=== PATIENT | male | born 1955 ===

== ENCOUNTER 2021-10-04 07:56 | Day surgery (SDC) | payer BC ==
[~2021-10-04 07:56] MED LIST: Lactated Ringers 1,000 ML IV SCH; Lidocaine 1%/Sod Bicarbonate in NS 8.4% 1 ML Syringe IDERM PRN; Sodium Chloride 0.9% 10 ML Syringe FLUSH PRN; Sodium Chloride 0.9% 10 ML Syringe FLUSH SCH
[2021-10-04] MEDS ORDERED: Lidocaine 1% 4 ML ONE (08:08)
[2021-10-04] MEDS ORDERED: Propofol 200 MG/20 ML SDV ONE ×3 (08:08→08:12)
[2021-10-04] MEDS ORDERED: Midazolam 1 MG/ML 2 ML SDV ONE (09:26)
== END 2021-10-04 10:10 | disposition home or self-care (01) ==
LOC: JD.SDS 07:56
PROVIDERS: ATTEND Surgery
DX: Z12.11 Encounter for screening for malignant neoplasm of colon (principal); K57.30 Diverticulosis of large intestine without perforation or abscess without bleeding; K21.9 Gastro-esophageal reflux disease without esophagitis; I10 Essential (primary) hypertension; F17.200 Nicotine dependence, unspecified, uncomplicated; E78.00 Pure hypercholesterolemia, unspecified; E11.9 Type 2 diabetes mellitus without complications; Z90.49 Acquired absence of other specified parts of digestive tract; Z98.890 Other specified postprocedural states; Z79.82 Long term (current) use of aspirin; Z79.84 Long term (current) use of oral hypoglycemic drugs; Z79.899 Other long term (current) drug therapy
CPT/HCPCS: 45378; J2250; J2704; J7120; 00812

== ENCOUNTER 2022-02-07 13:59 | Emergency (ER) | payer BC ==
[2022-02-07] MEDS ORDERED: Lidocaine 1% 10 ML MDV INJECT ONE ×2 (14:22→14:58)
[2022-02-07] MEDS ORDERED: Lidocaine 1% 10 ML MDV ONE (14:55)
== END 2022-02-07 15:30 | disposition home or self-care (01) ==
LOC: JD.ED 13:59
DX: S61.215A Laceration without foreign body of left ring finger without damage to nail, initial encounter (principal); K21.9 Gastro-esophageal reflux disease without esophagitis; E78.00 Pure hypercholesterolemia, unspecified; I10 Essential (primary) hypertension; E11.9 Type 2 diabetes mellitus without complications; Z79.82 Long term (current) use of aspirin; Z79.899 Other long term (current) drug therapy; Z90.49 Acquired absence of other specified parts of digestive tract; W29.8XXA Contact with other powered hand tools and household machinery, initial encounter
CPT/HCPCS: 12002; 99282